=== PATIENT | male | born 1955 | race Caucasian/White ===

== ENCOUNTER 2019-01-30 05:55 | Day surgery (SDC) | payer BC ==
[2019-01-30] MEDS ORDERED: Gatifloxacin 0.5% Ophth Soln 2.5 ML Bot EYELF SCH (06:00)
[2019-01-30] MEDS ORDERED: Sodium Chloride 0.9% 10 ML Syringe FLUSH PRN (06:00)
[2019-01-30] MEDS ORDERED: Lactated Ringers 1,000 ML IV SCH (06:00)
[2019-01-30] MEDS: Phenylephrine 10% Ophth Soln 5 ML Bot EYELF SCH ×3 (06:09→06:29)
[2019-01-30] MEDS: Cyclopentolate 1% Opth Soln 2 ML Bottle EYELF SCH ×3 (06:14→06:34)
[2019-01-30] MEDS ORDERED: Balanced Salt Solution Plus Ophth Irrig 500 ML Bottle IOCULAR ONE (07:56)
[2019-01-30] MEDS ORDERED: Carbachol 0.01% Intraocular 1.5 ML Vial EYELF ONE (07:56)
[2019-01-30] MEDS ORDERED: Balanced Salt Solution Ophth Irrig 15 ML Bottle EYELF ONE (07:56)
[2019-01-30] MEDS ORDERED: EPINEPHrine 1 MG/ML SDV ONE (07:56)
[2019-01-30] MEDS ORDERED: Water For Irrigation,Sterile 1,500 ML Container IRR ONE (07:56)
[2019-01-30] MEDS ORDERED: Dexamethasone/Neomycin/Polymyxin B Ophth Oint 3.5 GM Tube EYELF ONE (07:57)
[2019-01-30] MEDS ORDERED: Lidocaine 1% 10 ML MDV INJECT ONE (07:57)
[2019-01-30] MEDS ORDERED: Lidocaine 2% with EPINEPHrine 1:100,000 20 ML MDV INJECT ONE (07:57)
[2019-01-30] MEDS ORDERED: Tetracaine HCl/PF 0.5% 4 ML Bottle EYEBOTH ONE (07:58)
[2019-01-30] MEDS ORDERED: Hyaluronate Sodium 1% 0.85 ML Syringe IOCULAR ONE (07:58)
--- NOTE | 2019-01-30 09:08 | OR ---
DATE OF SURGERY: 01/30/2019 SURGEON: Cristo Lagunas MD PREOPERATIVE DIAGNOSIS: Cataract, left eye. POSTOPERATIVE DIAGNOSIS: Cataract, left eye. OPERATION PERFORMED: Phacoemulsification with posterior chamber lens insertion, left eye. HISTORY: The patient presents at this time with increasing amount of difficulty with the left eye if he tries to read, and he tries to drive at night. The vision for the left eye is 20/50. There is a 3+ nuclear sclerosis and 1+ cortical change of the lens. His eye has a combined cataract and a cataract of aging. FINDINGS: The patient was taken to the operating room where appropriate anesthesia, sedation and monitoring were provided. A retrobulbar block was given on the left side. The eye was massaged and was found to be appropriately soft. The eye and eyelids were then prepped and draped in the usual sterile manner. A lid speculum was placed. A micro sharp blade was used to enter the anterior chamber inside the limbus inferior-temporally. Xylocaine was irrigated into the eye at this site. Healon was irrigated into the eye through this site. Then using a 2.85 mm corneal blade an entry was made into the anterior chamber just inside the limbus temporally. Healon was again irrigated into the eye. Then using a cystitome, the anterior capsulorrhexis was created. The lens nucleus was hydrodissected using a 27 gauge cannula and balanced salt solution. The phacoemulsification unit was introduced through the temporal site and the Gavin spatula through the inferior temporal site. In so doing, the lens nucleus was phacoemulsified. The cortical fragments of the lens were removed using the irrigation aspiration unit. The posterior capsule was polished. Healon was irrigated into the eye. The posterior chamber lens was inserted and rotated into position inside the capsular bag. The Healon was irrigated out of the eye. Miostat was irrigated into the eye and the pupil rounded nicely. A single interrupted 10-0 Nylon suture was placed through the temporal corneal incision site. Balanced salt solution was irrigated into the eye. The wound was tested and found to be tight. Maxitrol ointment was placed into the patient's left eye. The eyelids were closed and an eye patch and mclaughlin shield were placed. The patient left the operating room in good condition. /[id number]/MODL
== END 2019-01-30 08:39 | disposition home or self-care (01) ==
LOC: KA.SDS 05:55
PROVIDERS: ATTEND Ophthalmology
DX: H25.812 Combined forms of age-related cataract, left eye (principal); I10 Essential (primary) hypertension; I49.3 Ventricular premature depolarization; D50.9 Iron deficiency anemia, unspecified; E78.00 Pure hypercholesterolemia, unspecified; E03.9 Hypothyroidism, unspecified; E55.9 Vitamin D deficiency, unspecified; K21.9 Gastro-esophageal reflux disease without esophagitis; K76.0 Fatty (change of) liver, not elsewhere classified; F10.20 Alcohol dependence, uncomplicated; J30.9 Allergic rhinitis, unspecified; R79.89 Other specified abnormal findings of blood chemistry; M17.12 Unilateral primary osteoarthritis, left knee; Z87.891 Personal history of nicotine dependence; Z79.51 Long term (current) use of inhaled steroids; Z79.899 Other long term (current) drug therapy
CPT/HCPCS: 66984; A9270; C1780; J0171; J2001; J7120

== ENCOUNTER 2019-03-06 07:57 | Day surgery (SDC) | payer BC ==
[2019-03-06] MEDS ORDERED: Moxifloxacin 0.5% Ophth Soln 3 ML Bottle EYERT SCH (08:15)
[2019-03-06] MEDS ORDERED: Lactated Ringers 1,000 ML IV SCH (08:15)
[2019-03-06] MEDS ORDERED: Sodium Chloride 0.9% 10 ML Syringe FLUSH PRN (08:15)
[2019-03-06] MEDS: Phenylephrine 10% Ophth Soln 5 ML Bot EYERT SCH ×3 (08:24→08:57)
[2019-03-06] MEDS: Cyclopentolate 1% Opth Soln 2 ML Bottle EYERT SCH ×3 (08:30→09:03)
[2019-03-06] MEDS ORDERED: Balanced Salt Solution Plus Ophth Irrig 500 ML Bottle IOCULAR ONE (10:32)
[2019-03-06] MEDS ORDERED: Water For Irrigation,Sterile 1,500 ML Container IRR ONE (10:32)
[2019-03-06] MEDS ORDERED: Balanced Salt Solution Ophth Irrig 15 ML Bottle EYERT ONE (10:32)
[2019-03-06] MEDS ORDERED: Dexamethasone/Neomycin/Polymyxin B Ophth Oint 3.5 GM Tube EYERT ONE (10:33)
[2019-03-06] MEDS ORDERED: Carbachol 0.01% Intraocular 1.5 ML Vial EYERT ONE (10:33)
[2019-03-06] MEDS ORDERED: Lidocaine 2% with EPINEPHrine 1:100,000 20 ML MDV INJECT ONE (10:34)
[2019-03-06] MEDS ORDERED: Lidocaine 1% 10 ML MDV INJECT ONE (10:34)
[2019-03-06] MEDS ORDERED: Hyaluronate Sodium 1% 0.85 ML Syringe IOCULAR ONE (10:34)
[2019-03-06] MEDS ORDERED: Tetracaine HCl/PF 0.5% 4 ML Bottle EYEBOTH ONE (10:35)
[2019-03-06] MEDS ORDERED: EPINEPHrine 1 MG/1 ML Amp ONE (10:35)
--- NOTE | 2019-03-06 16:07 | OR ---
DATE OF SURGERY: 03/06/2019 SURGEON: Cristo Lagunas MD PREOPERATIVE DIAGNOSIS: Cataract, right eye. POSTOPERATIVE DIAGNOSIS: Cataract, right eye. OPERATION PERFORMED: Phacoemulsification with posterior chamber lens insertion, right eye. HISTORY: The patient presents at this time with an increasing amount of difficulty seeing to read with the right eye. The vision for the right eye is 20/50. The right lens has a 2 to 3+ nuclear sclerosis and a 1+ cortical change. This eye is a combined cataract and a cataract of aging. FINDINGS: The patient was taken to the operating room where appropriate anesthesia, sedation and monitoring were provided. A retrobulbar block was given on the right side. The eye was massaged and was found to be appropriately soft. The eye and eyelids were then prepped and draped in the usual sterile manner. A lid speculum was placed. A micro sharp blade was used to enter the anterior chamber inside the limbus superior-temporally. Xylocaine was irrigated into the eye at this site. Healon was irrigated into the eye through this site. Then using a 2.85 mm corneal blade an entry was made into the anterior chamber just inside the limbus temporally. Healon was again irrigated into the eye. Then using a cystitome, the anterior capsulorrhexis was created. The lens nucleus was hydrodissected using a 27 gauge cannula and balanced salt solution. The phacoemulsification unit was introduced through the temporal site and the Gavin spatula through the superior temporal site. In so doing, the lens nucleus was phacoemulsified. The cortical fragments of the lens were removed using the irrigation aspiration unit. The posterior capsule was polished. Healon was irrigated into the eye. The posterior chamber lens was inserted and rotated into position inside the capsular bag. The Healon was irrigated out of the eye. Miostat was irrigated into the eye and the pupil rounded nicely. A single interrupted 10-0 nylon suture was placed through the temporal corneal incision site. Balanced salt solution was irrigated into the eye. The wound was tested and found to be tight. Maxitrol ointment was placed into the patient's right eye. The eyelids were closed and an eye patch and mclaughlin shield were placed. The patient left the operating room in good condition. /[id number]/MODL
== END 2019-03-06 11:11 | disposition home or self-care (01) ==
LOC: KA.SDS 07:57
PROVIDERS: ATTEND Ophthalmology
DX: H25.811 Combined forms of age-related cataract, right eye (principal); I10 Essential (primary) hypertension; E03.9 Hypothyroidism, unspecified; E78.00 Pure hypercholesterolemia, unspecified; J44.9 Chronic obstructive pulmonary disease, unspecified; K21.9 Gastro-esophageal reflux disease without esophagitis; K76.0 Fatty (change of) liver, not elsewhere classified; D50.9 Iron deficiency anemia, unspecified; M81.0 Age-related osteoporosis without current pathological fracture; M17.0 Bilateral primary osteoarthritis of knee; M06.9 Rheumatoid arthritis, unspecified; R91.1 Solitary pulmonary nodule; Z98.42 Cataract extraction status, left eye; Z87.891 Personal history of nicotine dependence; Z79.51 Long term (current) use of inhaled steroids; Z79.899 Other long term (current) drug therapy
CPT/HCPCS: 66984; A9270; J0171; J2001; J7120; V2632

== ENCOUNTER 2019-07-18 12:05 | Observation (INO) | payer BC ==
[2019-07-18] MEDS ORDERED: Sodium Chloride 0.9% 10 ML Syringe FLUSH PRN (12:14)
[2019-07-18] MEDS ORDERED: Sodium Chloride 0.9% 1,000 ML IV ONE (12:17)
--- NOTE | 2019-07-18 12:23 | EDM.PDOC ---
ED HPI GENERAL MEDICAL PROBLEM - General Chief Complaint: Syncope Stated Complaint: syncopal episode Time Seen by Provider: 07/18/19 12:08 Source of Information: Reports: Patient, EMS, Old Records History Limitations: Reports: No Limitations - History of Present Illness INITIAL COMMENTS - FREE TEXT/NARRATIVE: 63 YO WM presents to ER by EMS from [facility] with complaint of dizziness. Pt reports symptoms began yesterday with associated diarrhea with nausea and mild abdominal discomfort. Pt reports 6 episodes of loose diarrhea with a mild amount of rectal bright red bleeding. Pt reports 6 episodes of diarrhea today as well with no notice of bloody stools. Pt went to clinic and while getting xrays he developed the urge to have a bowel movement followed by nausea and he passed out for approximately 30 seconds. Pt was alert and oriented x 4 with a GCS=15 upon arrival to ER. Pt complaining of nausea and dizziness at this time. Pt denies chest pain, headache, fever or neck pain. Pt reports he's always short of breath and hasn't noticed any worsening of this at baseline. Onset Date: 07/17/19 Duration: Day(s): (2) Location: Reports: Abdomen, Generalized Quality: Reports: Ache Severity: Moderate Improves with: Reports: None Worsens with: Reports: Other (sitting up or standing) Associated Symptoms: Reports: Cough, Loss of Appetite, Malaise, Nausea/Vomiting , Shortness of Breath, Syncope, Weakness. Denies: Confusion, Chest Pain, cough w sputum, Diaphoresis, Fever/Chills, Headaches, Rash, Seizure - Related Data Allergies Allergy/AdvReac Type Severity Reaction Status Date / Time No Known Drug Allergies Allergy Cannot Verified 07/18/19 12:19 Remember Home Meds: Home Meds Alendronate Sodium [Fosamax] 70 mg PO WEEKLY 01/29/19 [History] Calcium Carbonate/Vitamin D3 [Calcium 600-Vit D3 400 Tablet] 1 tab PO BID [History] Desoximetasone [Topicort 0.05% Crm] 1 applic TP BID 01/29/19 [History] Diclofenac Sodium [Voltaren] 75 mg PO DAILY PRN 01/29/19 [History] Fluticasone Propionate [Flonase Allergy Relief] 1 spray NS BID 01/29/19 [History ] Fluticasone/Umeclidin/Vilanter [Trelegy Ellipta 100-62.5-25] 1 puff IH DAILY 08/19 [History] Omeprazole 20 mg PO DAILY 01/29/19 [History] Ranitidine [Zantac] 150 mg PO BEDTIME 01/29/19 [History] Levothyroxine [Synthroid] 50 mcg PO ACBREAKFAST 03/02/19 [History] hydroCHLOROthiazide [Hydrochlorothiazide] 25 mg PO DAILY 03/02/19 [History] Potassium Chloride 10 meq PO DAILY 07/18/19 [History] amLODIPine Besylate [Amlodipine Besylate] 5 mg PO DAILY 07/18/19 [History] Past Medical History HEENT History: Reports: Allergic Rhinitis, Cataract, Impaired Vision Other HEENT History: esophageal achalasia Cardiovascular History: Reports: High Cholesterol, Hypertension Respiratory History: Reports: COPD Other Respiratory History: lung nodule Gastrointestinal History: Reports: None, GERD, Other (See Below) Other Gastrointestinal History: elevated LFT'S - hepatic steatosis Musculoskeletal History: Reports: Arthritis, Osteoarthritis, RA Other Musculoskeletal History: cervical radiculitis. cervical arthritis. osteo in frances knees Psychiatric History: Reports: Addiction Other Psychiatric History: alcohol dependence with unspecified alcohol-induced disorder Hematologic History: Reports: Anemia, Iron Deficiency - Infectious Disease History Infectious Disease History: Reports: Mumps - Past Surgical History HEENT Surgical History: Reports: Cataract Surgery Cardiovascular Surgical History: Reports: None Respiratory Surgical History: Reports: None GI Surgical History: Reports: Colonoscopy, EGD, Hernia Repair/Other Musculoskeletal Surgical History: Reports: Knee Replacement, Other (See Below) Other Musculoskeletal Surgeries/Procedures:: right knee replacement. right foot reconstruction Social & Family History - Family History Family Medical History: Noncontributory - Caffeine Use Caffeine Use: Reports: None ED ROS GENERAL - Review of Systems Review Of Systems: See Below Constitutional: Reports: Malaise, Weakness, Decreased Appetite HEENT: Reports: No Symptoms Respiratory: Reports: Cough Cardiovascular: Reports: Lightheadedness Endocrine: Reports: No Symptoms GI/Abdominal: Reports: Abdominal Pain, Bloody Stool, Distension, Nausea, Vomiting : Reports: No Symptoms Musculoskeletal: Reports: No Symptoms Skin: Reports: No Symptoms Neurological: Reports: Dizziness Psychiatric: Reports: No Symptoms Hematologic/Lymphatic: Reports: Anemia Immunologic: Reports: No Symptoms - Physical Exam Exam: See Below Exam Limited By: No Limitations General Appearance: Alert, WD/WN, No Apparent Distress Eye Exam: Bilateral Eye: PERRL Ears: Normal External Exam, Normal Canal, Hearing Grossly Normal, Normal TMs Nose: Normal Inspection, Normal Mucosa, No Blood Throat/Mouth: Normal Inspection, Normal Lips, Normal Teeth, Normal Gums, Normal Oropharynx, Normal Voice, No Airway Compromise Head Exam: Atraumatic, Normocephalic Neck: Normal Inspection, Supple, Non-Tender, Full Range of Motion Respiratory/Chest: No Respiratory Distress, Lungs Clear, Normal Breath Sounds, No Accessory Muscle Use, Chest Non-Tender Cardiovascular: Normal Peripheral Pulses, Regular Rate, Rhythm, No Edema, No Gallop, No JVD, No Murmur, No Rub GI/Abdominal: Normal Bowel Sounds, Soft, Non-Tender, No Organomegaly, No Distention, No Abnormal Bruit, No Mass Neuro Exam (Abbreviated): Alert, Oriented, CN II-XII Intact, Normal Cognition, Normal Gait, Normal Reflexes, No Motor/Sensory Deficits EKG INTERPRETATION EKG Date: 07/18/19 Time: 12:23 Rhythm: NSR Rate (Beats/Min): 82 [place]: Normal P-Wave: Present QRS: Normal ST-T: Normal QT: Normal Comparison: No Change Course - Vital Signs Last Recorded V/S: Last Vital Signs Temp 36.2 C 07/18/19 12:14 Pulse 79 07/18/19 12:31 Resp 18 07/18/19 12:31 BP 119/63 07/18/19 12:31 Pulse Ox 96 07/18/19 12:31 Orthostatic Blood Pressure [ 93/56 Standing] Orthostatic Blood Pressure [ 104/61 Sitting] Orthostatic Blood Pressure [ 112/67 Supine] - Orders/Labs/Meds Orders: Active Orders 24 hr Category Date Time Status EKG Documentation Completion [RC] ASDIRECTED Care 07/18/19 12:16 Ordered Orthostatic Vital Signs [RC] ASDIRECTED Care 07/18/19 12:14 Ordered Peripheral IV Care [RC] . DIRECTED Care 07/18/19 12:16 Active COMPREHENSIVE METABOLIC PN,CMP [CHEM] Stat Lab 07/18/19 12:14 Ordered LIPASE [CHEM] Stat Lab 07/18/19 12:14 Ordered UA W/MICROSCOPIC [URIN] Stat Lab 07/18/19 12:14 Ordered Sodium Chloride 0.9% @ 999 MLS/HR (1000ml) Med 07/18/19 12:17 Ordered Sodium Chloride 0.9% [Normal Saline] 1,000 ml IV .BOLUS Sodium Chloride 0.9% [Saline Flush] Med 07/18/19 12:14 Ordered 10 ml FLUSH Q8HR PRN Peripheral IV Insertion Adult [OM.PC] Routine Oth 07/18/19 12:14 Ordered EKG 12 Lead [EK] Routine Ther 07/18/19 12:14 Ordered Medication Orders Sodium Chloride (Normal Saline) 1,000 mls @ 999 mls/hr IV .BOLUS ONE Stop: 07/18/19 13:17 Last Admin: 07/18/19 13:07 Dose: 999 mls/hr Sodium Chloride (Saline Flush) 10 ml FLUSH Q8HR PRN PRN Reason: keep vein open Labs: Laboratory Tests 07/18/19 07/18/19 Range/Units 12:40 12:40 WBC 5.11 (5.00-10.00) 10^3/uL RBC 3.48 L (4.50-6.00) 10^6/uL Hgb 11.3 L (13.0-17.0) g/dL Hct 33.0 L (40.0-52.0) % MCV 94.8 H D (82.0-92.0) fL MCH 32.5 H (27.0-31.0) pg MCHC 34.2 (32.0-36.0) g/dL RDW 13.1 (11.5-14.5) % Plt Count 44 L (150-400) 10^3/uL MPV 12.0 H (7.4-10.4) fL Immature Gran % (Auto) 0.2 (0.0-5.0) % Neut % (Auto) 69.2 (50.0-70.0) % Lymph % (Auto) 19.4 L (20.0-40.0) % [place] % (Auto) 11.0 H (2.0-8.0) % Eos % (Auto) 0.0 L (1.0-3.0) % Baso % (Auto) 0.2 (0.0-1.0) % Immature Gran # (Auto) 0.01 (0.00-0.50) 10^3/uL Neut # (Auto) 3.54 (2.50-7.00) 10^3/uL Lymph # (Auto) 0.99 L (1.00-4.00) 10^3/uL [place] # (Auto) 0.56 (0.10-0.80) 10^3/uL Eos # (Auto) 0.00 L (0.10-0.30) 10^3/uL Baso # (Auto) 0.01 (0.00-0.10) 10^3/uL Ammonia 22 (11-32) umol/L Meds: Medications Generic Name Dose Route Start Last Admin Trade Name Freq PRN Reason Stop Dose Admin Sodium Chloride 1,000 mls @ 999 mls/hr 07/18/19 12:17 07/18/19 13:07 Normal Saline IV 07/18/19 13:17 999 mls/hr .BOLUS ONE Administration Sodium Chloride 10 ml 07/18/19 12:14 Saline Flush FLUSH Q8HR PRN keep vein open - Radiology Interpretation Free Text/Narrative:: CXR- NAD - Re-Assessments/Exams Free Text/Narrative Re-Assessment/Exam: 07/18/19 12:43 orthostatics-positive= 77 112/67 lying; 93 93/56 standing Departure - Departure Time of Disposition: 13:20 Disposition: Refer to Observation Condition: Fair Clinical Impression: Dehydration, Orthostatic hypotension, Alcohol abuse Syncope Qualifiers: Syncope type: unspecified Qualified Code(s): R55 - Syncope and collapse Diarrhea Qualifiers: Diarrhea type: due to malabsorption Qualified Code(s): K90.9 - Intestinal malabsorption, unspecified; R19.7 - Diarrhea, unspecified - Discharge Information Referrals: Robert Luz [facility]NIC[facility] [Primary Care Provider] - Forms: ED Department Discharge Sepsis Event Note - Focused Exam Vital Signs: Vital Signs Temp Pulse Resp BP Pulse Ox 07/18/19 12:31 79 18 119/63 96 07/18/19 12:14 36.2 C 79 12 100 Date Exam was Performed: 07/18/19 Time Exam was Performed: 13:12 - My Orders Last 24 Hours: My Active Orders 07/18/19 12:14 Orthostatic Vital Signs [RC] ASDIRECTED COMPREHENSIVE METABOLIC PN,CMP [CHEM] Stat LIPASE [CHEM] Stat UA W/MICROSCOPIC [URIN] Stat Sodium Chloride 0.9% [Saline Flush] 10 ml FLUSH Q8HR PRN Peripheral IV Insertion Adult [OM.PC] Routine EKG 12 Lead [EK] Routine 07/18/19 12:16 EKG Documentation Completion [RC] ASDIRECTED Peripheral IV Care [RC] . DIRECTED 07/18/19 12:17 Sodium Chloride 0.9% @ 999 MLS/HR (1000ml) Sodium Chloride 0.9% [Normal Saline] 1,000 ml IV .BOLUS - Assessment/Plan Last 24 Hours: My Active Orders 07/18/19 12:14 Orthostatic Vital Signs [RC] ASDIRECTED COMPREHENSIVE METABOLIC PN,CMP [CHEM] Stat LIPASE [CHEM] Stat UA W/MICROSCOPIC [URIN] Stat Sodium Chloride 0.9% [Saline Flush] 10 ml FLUSH Q8HR PRN Peripheral IV Insertion Adult [OM.PC] Routine EKG 12 Lead [EK] Routine 07/18/19 12:16 EKG Documentation Completion [RC] ASDIRECTED Peripheral IV Care [RC] . DIRECTED 07/18/19 12:17 Sodium Chloride 0.9% @ 999 MLS/HR (1000ml) Sodium Chloride 0.9% [Normal Saline] 1,000 ml IV .BOLUS Assessment:: 1. syncope 2. orthostatic hypotension 3. Hemoccult positive stool/mild anemia 4. diarrhea Plan: 1. Admit for 23 hour leighann Rivero 2. NS @ 150cc/hr 3. repeat labs in am 4. supportive care
--- NOTE | 2019-07-18 12:51 | CR ---
[id number] RAD/RAD Chest PA or AP 1V EXAM: RAD Chest PA or AP 1V INDICATION: SYNCOPE. COMPARISON: None. DISCUSSION: Cardiomediastinal silhouette is normal in size and contour. No infiltrate, effusion, pneumothorax, or edema. IMPRESSION: No acute cardiopulmonary abnormality. Philippe Mckeon DO 07/18/19 1249 Thank you for allowing us to participate in the care of your patient.
[2019-07-18 13:11] LABS: ANION GAP 16.3 mmol/L (5-15); CHLORIDE,CL 105 mmol/L (98-115); SODIUM,NA 143 mmol/L (136-145)
[2019-07-18] MEDS ORDERED: Ondansetron 4 MG/2 ML SDV IV PRN (13:26)
[2019-07-18] MEDS ORDERED: chlordiazePOXIDE 25 MG Cap PO PRN (13:30)
[2019-07-18] MEDS ORDERED: Dextrose 5 %-0.2 % NaCl 1,000 ML IV SCH (13:30)
[2019-07-18] MEDS ORDERED: Thiamine 100 MG in Sodium Chloride 0.9% 100 ML IV ONE (13:30)
[2019-07-18] MEDS ORDERED: MVI, Adult with Vitamin K 10 ML in Sodium Chloride 0.9% 1,000 ML IV ONE ×2 (13:30)
[2019-07-18] MEDS ORDERED: Folic Acid 50 MG/10 ML MDV IV SCH (13:45)
[2019-07-18] MEDS: Dextrose 5%-0.45% NaCl 1,000 ML IV SCH (19:45)
[2019-07-19] MEDS: Dextrose 5%-0.45% NaCl 1,000 ML IV SCH (03:45)
[2019-07-19 07:22] LABS: CHLORIDE,CL 105 mmol/L (98-115); SODIUM,NA 145 mmol/L (136-145)
[2019-07-19] MEDS ORDERED: Omeprazole 20 MG Cap.CR PO SCH (07:30)
[2019-07-19] MEDS ORDERED: Folic Acid 1 MG Tab PO SCH (09:00)
--- NOTE | 2019-07-19 09:40 | PCM.HP.2 ---
H&P History of Present Illness - General Date of Service: 07/19/19 Admit Problem/Dx: Admission Diagnosis/Problem Admission Diagnosis/Problem Orthostatic hypotension - Related Data Allergies/Adverse Reactions: Allergies Allergy/AdvReac Type Severity Reaction Status Date / Time No Known Drug Allergies Allergy Cannot Verified 07/18/19 12:19 Remember Home Medications: Home Meds Alendronate Sodium [Fosamax] 70 mg PO WEEKLY 01/29/19 [History] Calcium Carbonate/Vitamin D3 [Calcium 600-Vit D3 400 Tablet] 1 tab PO DAILY 08/19 [History] Desoximetasone [Topicort 0.05% Crm] 1 applic TP BID PRN 01/29/19 [History] Diclofenac Sodium [Voltaren] 75 mg PO DAILY PRN 01/29/19 [History] Fluticasone Propionate [Flonase Allergy Relief] 1 spray NS BID 01/29/19 [History ] Fluticasone/Umeclidin/Vilanter [Trelegy Ellipta 100-62.5-25] 1 puff IH DAILY 08/19 [History] Omeprazole 20 mg PO DAILY 01/29/19 [History] Ranitidine [Zantac] 150 mg PO BEDTIME 01/29/19 [History] Levothyroxine [Synthroid] 50 mcg PO ACBREAKFAST 03/02/19 [History] hydroCHLOROthiazide [Hydrochlorothiazide] 25 mg PO DAILY 03/02/19 [History] Potassium Chloride 10 meq PO DAILY 07/18/19 [History] amLODIPine Besylate [Amlodipine Besylate] 5 mg PO DAILY 07/18/19 [History] Past Medical History HEENT History: Reports: Allergic Rhinitis, Cataract, Impaired Vision Other HEENT History: esophageal achalasia Cardiovascular History: Reports: High Cholesterol, Hypertension Respiratory History: Reports: COPD Other Respiratory History: lung nodule Gastrointestinal History: Reports: None, GERD, Other (See Below) Other Gastrointestinal History: elevated LFT'S - hepatic steatosis Musculoskeletal History: Reports: Arthritis, Osteoarthritis, RA Other Musculoskeletal History: cervical radiculitis. cervical arthritis. osteo in [place]ances knees Psychiatric History: Reports: Addiction Other Psychiatric History: alcohol dependence with unspecified alcohol-induced disorder Hematologic History: Reports: Anemia, Iron Deficiency - Infectious Disease History Infectious Disease History: Reports: Mumps - Past Surgical History HEENT Surgical History: Reports: Cataract Surgery Cardiovascular Surgical History: Reports: None Respiratory Surgical History: Reports: None GI Surgical History: Reports: Colonoscopy, EGD, Hernia Repair/Other Musculoskeletal Surgical History: Reports: Knee Replacement, Other (See Below) Other Musculoskeletal Surgeries/Procedures:: right knee replacement. right foot reconstruction Social & Family History - Family History Family Medical History: Noncontributory - Tobacco Use Smoking Status *Q: Former Smoker Used Tobacco, but Quit: Yes Month/Year Tobacco Last Used: quit Apr 18, 2015 - Caffeine Use Caffeine Use: Reports: Coffee - Alcohol Use Days Per Week of Alcohol Use: 7 Number of Drinks Per Day: 8 Total Drinks Per Week: 56 Date of Last Drink: 07/17/19 - Recreational Drug Use Recreational Drug Use: No H&P Review of Systems - Review of Systems: Review Of Systems: See Below General: Reports: Chills, Decreased Appetite. Denies: Fever Pulmonary: Reports: Shortness of Breath Cardiovascular: Reports: Lightheadedness. Denies: Chest Pain, Palpitations, Syncope Gastrointestinal: Reports: Black Stool, Bloody Stool, Diarrhea. Denies: Constipation Genitourinary: Reports: No Symptoms Musculoskeletal: Reports: No Symptoms Skin: Reports: No Symptoms Psychiatric: Reports: No Symptoms Exam - Exam Exam: See Below - Vital Signs Vital Signs: Last Vital Signs Temp 97.1 F 07/19/19 06:19 Pulse 67 07/19/19 06:19 Resp 18 07/19/19 06:19 BP 104/66 07/19/19 06:19 Pulse Ox 95 07/19/19 07:00 Orthostatic Blood Pressure [ 93/56 Standing] Orthostatic Blood Pressure [ 104/61 Sitting] Orthostatic Blood Pressure [ 112/67 Supine] Weight: 145 lb 7 oz - Exam Quality Assessment: No: Supplemental Oxygen, DVT Prophylaxis General: Alert, Oriented, 4 Lungs: Clear to Auscultation, Normal Respiratory Effort Cardiovascular: Regular Rate, Regular Rhythm GI/Abdominal Exam: Distended, Hepatomegaly, Splenomegaly. No: Rigid (Male) Exam: Deferred Rectal (Males) Exam: Heme - Stool, Other. No: Decreased Rectal Tone, Hemorrhoids Back Exam: No: CVA Tenderness (L), CVA Tenderness (R) Extremities: No Pedal Edema Neurological: Cranial Nerves Intact Neuro Extensive - Mental Status: Alert, Oriented x3, Normal Mood/Affect, Normal Cognition - Patient Data Lab Results Last 24 hrs: Laboratory Results - last 24 hr 07/18/19 07/18/19 07/18/19 Range/Units 12:40 12:40 12:40 WBC 5.11 (5.00-10.00) 10^3/uL RBC 3.48 L (4.50-6.00) 10^6/uL Hgb 11.3 L (13.0-17.0) g/dL Hct 33.0 L (40.0-52.0) % MCV 94.8 H D (82.0-92.0) fL MCH 32.5 H (27.0-31.0) pg MCHC 34.2 (32.0-36.0) g/dL RDW 13.1 (11.5-14.5) % Plt Count 44 L (150-400) 10^3/uL MPV 12.0 H (7.4-10.4) fL Immature Gran % (Auto) 0.2 (0.0-5.0) % Neut % (Auto) 69.2 (50.0-70.0) % Lymph % (Auto) 19.4 L (20.0-40.0) % [place] % (Auto) 11.0 H (2.0-8.0) % Eos % (Auto) 0.0 L (1.0-3.0) % Baso % (Auto) 0.2 (0.0-1.0) % Immature Gran # (Auto) 0.01 (0.00-0.50) 10^3/uL Neut # (Auto) 3.54 (2.50-7.00) 10^3/uL Lymph # (Auto) 0.99 L (1.00-4.00) 10^3/uL [place] # (Auto) 0.56 (0.10-0.80) 10^3/uL Eos # (Auto) 0.00 L (0.10-0.30) 10^3/uL Baso # (Auto) 0.01 (0.00-0.10) 10^3/uL Sodium 143 (136-145) mmol/L Potassium 3.8 (3.3-5.3) mmol/L Chloride 105 (98-115) mmol/L Carbon Dioxide 25.5 (21.0-32.0) mmol/L Anion Gap 16.3 H (5-15) mmol/L BUN 36 H D (6-25) mg/dL Creatinine 1.03 (0.51-1.17) mg/dL Est Cr Clr Drug Dosing 63.86 mL/min Estimated GFR (MDRD) > 60 mL/min Glucose 164 H (75 - 99) mg/dL Calcium 8.7 (8.7-10.3) mg/dL Total Bilirubin 1.4 H (0.2-1.0) mg/dL AST 140 H (15-37) U/L ALT 104 H (12-78) U/L Alkaline Phosphatase 152 H (46-116) IU/L Ammonia 22 (11-32) umol/L Total Protein 5.7 L (6.4-8.2) g/dL Albumin 2.48 L (3.00-4.80) g/dL Lipase 38 L (73-393) U/L Specimen Type Urine Color (YELLOW) Urine Appearance (CLEAR) Urine pH (5.0-9.0) Ur Specific [place] (1.005-1.030) Urine Protein (NEGATIVE) mg/dL Urine Glucose (UA) (NEGATIVE) mg/dL Urine Ketones (NEGATIVE) mg/dL Urine Occult Blood (NEGATIVE) Urine Nitrite (NEGATIVE) Urine Bilirubin (NEGATIVE) Urine Urobilinogen (0.2-1.0) E.U./dL Ur Leukocyte Esterase (NEGATIVE) Urine RBC (0-5) /HPF Urine WBC (0-5) /HPF Ur Epithelial Cells /LPF Urine Bacteria (NONE TO FEW) /HPF Hyaline Casts (NEGATIVE) /LPF 07/18/19 07/19/19 07/19/19 Range/Units 14:18 06:55 06:55 WBC 5.58 (5.00-10.00) 10^3/uL RBC 2.84 L (4.50-6.00) 10^6/uL Hgb 9.3 L D (13.0-17.0) g/dL Hct 26.6 L (40.0-52.0) % MCV 93.7 H (82.0-92.0) fL MCH 32.7 H (27.0-31.0) pg MCHC 35.0 (32.0-36.0) g/dL RDW 13.2 (11.5-14.5) % Plt Count 41 L (150-400) 10^3/uL MPV 12.1 H (7.4-10.4) fL Immature Gran % (Auto) 0.2 (0.0-5.0) % Neut % (Auto) 72.5 H (50.0-70.0) % Lymph % (Auto) 21.1 (20.0-40.0) % [place] % (Auto) 5.6 (2.0-8.0) % Eos % (Auto) 0.4 L (1.0-3.0) % Baso % (Auto) 0.2 (0.0-1.0) % Immature Gran # (Auto) 0.01 (0.00-0.50) 10^3/uL Neut # (Auto) 4.05 (2.50-7.00) 10^3/uL Lymph # (Auto) 1.18 (1.00-4.00) 10^3/uL [place] # (Auto) 0.31 (0.10-0.80) 10^3/uL Eos # (Auto) 0.02 L (0.10-0.30) 10^3/uL Baso # (Auto) 0.01 (0.00-0.10) 10^3/uL Sodium 145 (136-145) mmol/L Potassium 3.2 L (3.3-5.3) mmol/L Chloride 105 (98-115) mmol/L Carbon Dioxide 26.2 (21.0-32.0) mmol/L Anion Gap 17.0 H (5-15) mmol/L BUN 14 (6-25) mg/dL Creatinine 0.68 (0.51-1.17) mg/dL Est Cr Clr Drug Dosing 96.72 mL/min Estimated GFR (MDRD) > 60 mL/min Glucose 134 H (75 - 99) mg/dL Calcium 7.5 L (8.7-10.3) mg/dL Total Bilirubin (0.2-1.0) mg/dL AST (15-37) U/L ALT (12-78) U/L Alkaline Phosphatase (46-116) IU/L Ammonia (11-32) umol/L Total Protein (6.4-8.2) g/dL Albumin (3.00-4.80) g/dL Lipase (73-393) U/L Specimen Type Urinvoid Urine Color Yellow (YELLOW) Urine Appearance Clear (CLEAR) Urine pH 5.5 (5.0-9.0) Ur Specific [place] 1.015 (1.005-1.030) Urine Protein Negative (NEGATIVE) mg/dL Urine Glucose (UA) Negative (NEGATIVE) mg/dL Urine Ketones Negative (NEGATIVE) mg/dL Urine Occult Blood Negative (NEGATIVE) Urine Nitrite Negative (NEGATIVE) Urine Bilirubin Negative (NEGATIVE) Urine Urobilinogen 0.2 (0.2-1.0) E.U./dL Ur Leukocyte Esterase Negative (NEGATIVE) Urine RBC Not seen (0-5) /HPF Urine WBC Not seen (0-5) /HPF Ur Epithelial Cells Occasional /LPF Urine Bacteria Not seen (NONE TO FEW) /HPF Hyaline Casts Moderate H (NEGATIVE) /LPF Result Diagrams: 07/19/19 06:55 07/19/19 06:55 Sepsis Event Note - Evaluation Sepsis Screening Result: No Definite Risk - Focused Exam Vital Signs: Vital Signs Temp Pulse Resp BP Pulse Ox Pulse Ox 07/19/19 07:00 95 07/19/19 06:19 97.1 F 67 18 104/66 95 07/19/19 03:00 98.4 F 81 20 102/61 92 L 07/18/19 23:00 96.3 F 77 18 105/68 91 L Date Exam was Performed: 07/19/19 Time Exam was Performed: 11:21 Problem List Initiated/Reviewed/Updated: Yes Orders Last 24hrs: Active Orders 24 hr Category Date Time Status Patient Status [ADT] Routine ADT 07/18/19 13:26 Active Cardiac Monitoring [RC] 0300,0700,1100,1500,1900,2300 Care 07/18/19 13:27 Active Oxygen Therapy [RC] PRN Care 07/18/19 13:26 Active Peripheral IV Care [RC] . DIRECTED Care 07/18/19 12:16 Active Up With Assistance [RC] 0900 Care 07/18/19 13:26 Active VTE/DVT Education [RC] PER UNIT ROUTINE Care 07/18/19 13:26 Active Vital Signs [RC] 0300,0700,1100,1500,1900,2300 Care 07/18/19 13:26 Active Consult to Case Management/Food Editor [CONS] Cons 07/18/19 13:26 Active Routine Clear Liquid Diet [DIET] Diet 07/18/19 Dinner Active Dextrose 5%-0.45% NaCl [Dextrose 5%-1/2 NS] 1,000 ml Med 07/18/19 19:45 Active IV ASDIRECTED Folic Acid Med 07/19/19 09:00 Ordered 1 mg PO DAILY Omeprazole Med 07/19/19 07:30 Active 20 mg PO ACBREAKFAST Ondansetron [Zofran] Med 07/18/19 13:26 Active 4 mg IV Q6H PRN chlordiazePOXIDE [Librium] Med 07/18/19 13:30 Active 25 mg PO TID PRN Peripheral IV Insertion Adult [OM.PC] Routine Oth 07/18/19 12:14 Ordered Resuscitation Status Routine Resus Stat 07/18/19 13:26 Ordered Medication Orders Chlordiazepoxide HCl (Librium) 25 mg PO TID PRN PRN Reason: Agitation Folic Acid (Folic Acid) 1 mg PO DAILY BRAD Dextrose/Sodium Chloride (Dextrose 5%-1/2 Ns) 1,000 mls @ 125 mls/hr IV ASDIRECTED BRAD Last Admin: 07/19/19 03:45 Dose: 125 mls/hr Infusion: 07/19/19 03:45 Dose: 125 mls/hr Admin: 07/18/19 19:45 Dose: 125 mls/hr Omeprazole (Omeprazole) 20 mg PO ACBREAKFAST BRAD Last Admin: 07/19/19 07:22 Dose: 20 mg Ondansetron HCl (Zofran) 4 mg IV Q6H PRN PRN Reason: Nausea/Vomiting Assessment/Plan Comment:: Use this H&P with as a combined discharge summary as the patient is being discharged same day of seeing the patient History of present illness 63-year-old gentleman admitted into observation syncope episode yesterday at the [facility]. Has been noticing blood in stools 1 to 2 days sometimes bright red however more black than usual does have a history of hemorrhoids. However the patient felt this was quite different. Yesterday while he was in x- ray room to get a chest x-ray due to some shortness of breath he got nauseated and had one small bout of coffee-ground emesis. On NSAIDs along with EtOH abuse alcohol use- 6 pack of beer a day. Hx of Rheumatoid arthritis. Recent hemoglobin 12.7 Diagnostic work-up hx March 2019 EGD - [place]-colored mucosa suspicious for short-segment Rick's esophagus.Biopsied. No esophageal varices - Portal hypertensive gastropathy. - Erythematous mucosa in the antrum. - Normal examined duodenum. Biopsied. Colonoscopy impression: - One 10 mm polyp in the sigmoid colon, removed with a cold snare. Resected and retrieved. Biopsied results tubular adenoma - Diverticulosis in the sigmoid colon and in the descending colon. - The examined portion of the ileum was normal. - The examination was otherwise normal. Final diagnosis/impression plan/plan GI bleed, acute, transfer to [facility], spoke with GI and hospitalist, will start octreotide in route - Mortality Measure Prognosis:: Good
[2019-07-19] MEDS ORDERED: Pantoprazole 40 MG in Sodium Chloride 0.9% 100 ML IV ONE (11:14)
[2019-07-19] MEDS ORDERED: Octreotide 100 MCG/ML SDV SUBCUT ONE (11:14)
[2019-07-19] MEDS ORDERED: NS + KCl 20mEq/L 1,000 ML IV SCH (11:15)
[2019-07-19] MEDS ORDERED: Sodium Chloride 0.9% 1,000 ML IV SCH (11:15)
[2019-07-19] MEDS ORDERED: Pantoprazole 40 MG Vial IVPUSH SCH (11:25)
== END 2019-07-19 12:15 ==
LOC: KA.ED 12:05 → KA.MS 13:23
PROVIDERS: ADMIT Physician Assistant Medical; ATTEND Physician Assistant
DX: I95.1 Orthostatic hypotension (principal); K92.1 Melena; I10 Essential (primary) hypertension; E78.00 Pure hypercholesterolemia, unspecified; J44.9 Chronic obstructive pulmonary disease, unspecified; K64.9 Unspecified hemorrhoids; M06.9 Rheumatoid arthritis, unspecified; Z87.891 Personal history of nicotine dependence; Z86.010 Personal history of colon polyps; Z79.51 Long term (current) use of inhaled steroids; Z79.899 Other long term (current) drug therapy
CPT/HCPCS: 36415; 71045; 80048; 80053; 81001; 82140; 82272; 83690; 85025; 93005; 96361; 96365; 96366; 96372; 96375; A9270-GY; C9113; G0378; J2354-GY; J3411; J3480; J3490; J7030; J7042; J7050